=== PATIENT | female | born 1940 | race Caucasian/White ===

== ENCOUNTER 2018-07-22 15:03 | Inpatient (IN) | payer MEDICARE ==
[~2018-07-22] VITALS: Ht 153.7 cm; Wt 45.0 kg
[2018-07-22 15:46] LABS: BASOPHILS # (AUTO) 0.05 x10^3/uL (0-0.1); BASOPHILS % (AUTO) 1 % (0-1); EOSINOPHILS % (AUTO) 2 % (1-7); LYMPHOCYTES # (AUTO) 1.52 x10^3/uL (1-3.4); LYMPHOCYTES % (AUTO) 26 % (22-44); MD NO; MEAN CORPUSCULAR HEMOGLOBIN 31.5 pg (27.0-34.8); MEAN CORPUSCULAR HGB CONC 33.3 g/dL (32.4-35.8); MEAN CORPUSCULAR VOLUME 94.7 fL (80-100); MEAN PLATELET VOLUME 7.9 fL (7.4-10.4); MONOCYTES # (AUTO) 0.69 x10^3/uL (0.2-0.8); MONOCYTES % (AUTO) 12 % (2-9); NEUTROPHILS # (AUTO) 3.43 x10^3/uL (1.8-6.8); NEUTROPHILS % (AUTO) 59 % (42-75); PLATELET COUNT 407 x10^3/uL (130-400); RED BLOOD COUNT 4.11 x10^6/uL (3.82-5.3); RED CELL DISTRIBUTION WIDTH 13.6 % (9.6-15.2)
[2018-07-22 15:58] LABS: INTERNATIONAL NORMALIZED RATIO 1.04 (0.93-1.1); PROTHROMBIN TIME 10.7 Seconds (9.6-11.5)
[2018-07-22 15:59] LABS: ALBUMIN 4.1 g/dL (3.4-5.0); ANION GAP 5 mmol/L (5-15); CALCIUM 8.9 mg/dL (8.5-10.1); CHLORIDE 104 mmol/L (98-107)
[2018-07-22] MEDS ORDERED: SODIUM CHLORIDE FLUSH 10ML SYR IVF ONE (16:00)
[2018-07-22 16:02] LABS: ALANINE AMINOTRANSFERASE 24 U/L (12-78); ALKALINE PHOSPHATASE 67 U/L (45-117); BILIRUBIN,TOTAL 0.8 mg/dL (0.2-1.0); CREATININE 0.64 mg/dL (0.55-1.02); TOTAL PROTEIN 7.5 g/dL (6.4-8.2)
[2018-07-22] MEDS ORDERED: DICL50TA4 PO (17:56)
[2018-07-22] MEDS ORDERED: VALA10004 PO (18:04)
[2018-07-22] MEDS ORDERED: LORA1TAB PO (18:04)
[2018-07-22] MEDS ORDERED: GABA-827 PO (18:04)
[2018-07-22] MEDS ORDERED: HYDR-883 PO (18:04)
[2018-07-22] MEDS ORDERED: MIRA25TA PO (18:04)
[2018-07-22] MEDS ORDERED: ENALAPRILAT 1.25 MG/ML, 2ML IV PRN (18:30)
[2018-07-22] MEDS ORDERED: ONDANSETRON 2MG/ML, 2ML IVPush PRN (18:30)
[2018-07-22] MEDS ORDERED: ACETAMINOPHEN 325 MG TABLET PO PRN (18:30)
[2018-07-22] MEDS ORDERED: POLYETHYLENE GLYCOL 17 GM PACKET PO PRN (18:30)
[2018-07-22] MEDS ORDERED: DOCUSATE 100 MG CAPSULE PO PRN (18:30)
[2018-07-22 20:00] VITALS: BP 167/91
[2018-07-22] MEDS ORDERED: HYDROcodone/APAP 5/325 TABLET PO PRN (20:00)
[2018-07-22] MEDS ORDERED: LORazepam 1MG TABLET PO PRN (20:00)
[2018-07-22] MEDS: GABAPENTIN 400 MG CAPSULE PO SCH (20:35)
[2018-07-22] MEDS ORDERED: ATORVASTATIN 40 MG TABLET PO SCH (21:00)
[2018-07-22 22:00] VITALS: BP 121/74
[2018-07-23 00:59] VITALS: BP 124/76
[2018-07-23 06:10] LABS: CHOL/HDL RATIO 2.9; LDL/HDL RATIO 1.7 (0.5-3.0)
[2018-07-23] MEDS: GABAPENTIN 400 MG CAPSULE PO SCH ×2 (06:10→11:31)
[2018-07-23 07:43] VITALS: BP 154/86
[2018-07-23] MEDS ORDERED: MIRABEGRON 25 MG HOMEMEDPO SCH (09:00)
[2018-07-23] MEDS ORDERED: CLOPIDOGREL 75 MG TABLET PO SCH (09:00)
[2018-07-23] MEDS ORDERED: VALACYCLOVIR 500MG TABLET PO SCH (09:00)
[2018-07-23] MEDS ORDERED: LISINOPRIL 5 MG TABLET PO SCH (09:00)
[2018-07-23 13:03] VITALS: BP 120/71
[2018-07-23] MEDS ORDERED: LISI5TAB7 PO (14:04)
[2018-07-23] MEDS ORDERED: ATOR40TA78 PO (14:04)
== END 2018-07-23 15:40 | disposition home or self-care (01) | DRG 69 ==
LOC: ED 17:23 → EDIP 18:27 → 4WST 19:53 → DCLOUNGE 07-23 15:20
PROVIDERS: ADMIT Hospitalist; ATTEND Hospitalist
DX: G45.9 Transient cerebral ischemic attack, unspecified (principal); I16.0 Hypertensive urgency; M19.90 Unspecified osteoarthritis, unspecified site; N30.10 Interstitial cystitis (chronic) without hematuria; D47.3 Essential (hemorrhagic) thrombocythemia; H53.8 Other visual disturbances; G31.9 Degenerative disease of nervous system, unspecified; I49.1 Atrial premature depolarization; Z79.82 Long term (current) use of aspirin; Z90.710 Acquired absence of both cervix and uterus; Z90.89 Acquired absence of other organs; Z90.49 Acquired absence of other specified parts of digestive tract; Z82.3 Family history of stroke; Z82.49 Family history of ischemic heart disease and other diseases of the circulatory system
CPT/HCPCS: 36415; 70450; 70498; 70551; 80053; 80061; 85025; 85610; 85730; 93005; 93306; 99285; G0378